=== PATIENT | male | born 1955 | race Caucasian/White ===

== ENCOUNTER → 2024-05-19 08:20 | Outpatient (REF) | payer BC, SELFPAY | LOC: RCS 08:20 | PROVIDERS: ATTENDING PHYSICIAN Internal Medicine Cardiovascular Disease; FAMILY PHYSICIAN Family Medicine | DX: E78.2 Mixed hyperlipidemia (principal); R68.84 Jaw pain; E11.9 Type 2 diabetes mellitus without complications; Z79.4 Long term (current) use of insulin; Z82.49 Family history of ischemic heart disease and other diseases of the circulatory system | CPT/HCPCS: 93017; 93350 ==

== ENCOUNTER → 2024-11-17 18:26 | Outpatient (REF) | payer BC, SELFPAY | LOC: MRI 3T 18:26 | PROVIDERS: ATTENDING PHYSICIAN Surgery; FAMILY PHYSICIAN Family Medicine | DX: R97.20 Elevated prostate specific antigen [PSA] (principal) | CPT/HCPCS: 72197; A9575 ==

== ENCOUNTER 2025-08-14 09:05 | Emergency (ER) | payer BC, SELFPAY ==
[2025-08-14 09:08] VITALS: BP 141/76
[2025-08-14 09:37] LABS: Hematocrit 45.7 % (39.0-52.0); Hemoglobin 15.2 g/dL (13.0-18.0); Mean Corp Hgb Conc. 33.3 g/dL (33.0-37.0); Mean Corpuscular Volume 94.2 fL (80.0-94.0); Nucleated Red Blood Cells % 0 % (-); Platelet Count 255 10^3/uL (130-400); Red Cell Dist. Width 12.5 % (11.5-14.5)
[2025-08-14 09:48] LABS: Urine Character Clear (Clear)
[2025-08-14 09:48] LABS: ALT (SGPT) 21 U/L (0-50); AST (SGOT) 19 U/L (17-59); Albumin 4.6 g/dl (3.5-5.0); Alkaline Phosphatase 105 U/L (38-126); Blood Urea Nitrogen 23 mg/dl (9-20); Calcium 9.3 mg/dl (8.4-10.2); Carbon Dioxide 26 mmol/L (22-30); Chloride 103 mmol/L (98-107); Glucose 168 mg/dl (70-99); Potassium 4.3 mmol/L (3.5-5.1); Sodium 138 mmol/L (135-145); Total Protein 7.8 g/dl (6.3-8.2); eGFR > 60.00
--- NOTE | 2025-08-14 10:06 | ED.GENMED ---
History of Present Illness
General
Chief Complaint: Flank Pain
Source: patient and spouse
Time Seen by Provider: 08/14/25 09:37
History of Present Illness
History of Present Illness:
70-year-old male presents emergency department with complaints of a 'dull constant' discomfort rated 3 out of 10 noted in the right back area about 6 days ago. This was also associated with dysuria and frequency. He denies hematuria, fever,
chills, sweats, abdominal pain, testicular/groin pain, chest pain, shortness of breath, nausea, vomiting. He spoke to his urology office yesterday and was sent for an outpatient UA which he submitted, Augmentin. He has taken 3 doses this
medication and notes that the dysuria has decreased 'significantly'. His pain is now 1 out of 10 and currently here in the bed he is pain-free. He notes the pain is worse when he stands or walks around. The pain is nonradiating, and he denies
numbness, tingling, weakness, incontinence, saddle anesthesia, or other complaints. He was concerned today that he may have an associated kidney stone.
Past History
Past History
ED Past Medical History: IDDM and Other (chronic bronchitis, kidney stone)
ED Past Surgical History: Other (Melanoma removal)
Social History
Tobacco: Non-smoker
Alcohol: Occasional
Drug: None
Personal:
Living: with family
Phy Exam
Physical Exam
Physical Exam:
GENERAL: Alert , in no apparent distress
EYE: pupils equal and reactive
NECK: Supple, no significant adenopathy.
ENT: o/p clr, mmm.
CARDIAC: Regular rate and rhythm .
LUNGS: Clear breath sounds bilaterally, no acute respiratory distress, no wheezes/rales/rhonchi
ABDOMEN: Soft, without focal tenderness, no r/g, no cvat
NEUROLOGICAL: Alert and oriented, no focal neuro deficits
SKIN: Warm and dry, skin intact.
MUSCULOSKELETAL: No edema, well perfused.
PSYCH: Normal and appropriate interaction.
Course
Orders/Labs/Results
Orders:
Orders
08/14/25 09:22
Complete Blood Count/With Diff Urgent
Comprehensive Metabolic Panel Urgent
08/14/25 09:41
Urinalysis Reflex To Culture Urgent
Date Specimen was Collected: 08/14/25
Time Specimen was Collected: :26
Urine Microscopic Reflex Cult Urgent
Urine Culture Urgent
VICKY Source: U
Specimen Description:
Date Specimen was Collected: 08/14/25
Time Specimen was Collected: :
08/14/25 10:06
CT Abd/pel Without Iv Or Oral Urgent
Comment:
Reason For Exam: hx k stone, now R flnk pain
Abnormal Lab Results
08/14/25 08/14/25
09:22 09:41
MCV 94.2 H fL
(80.0-94.0)
MCH 31.3 H pg
(27.0-31.0)
MPV 10.6 H fL
(7.4-10.4)
Abs Immat Gran (auto) 0.1 H 10^3/uL
(0-0.05)
Absolute Monos (auto) 0.7 H 10^3/uL
(0.1-0.6)
Immature Gran % 0.8 H %
(0-0.5)
Lymphocytes % 20.3 L %
(20.5-51.1)
BUN 23 H mg/dl
(9-20)
Glucose 168 H mg/dl
(70-99)
Ur Occult Blood Reflex 1+ A
(Negative)
Leukocyte Esterase Rfl 2+ A
(Negative)
Urine RBC 11-15 A /HPF
(0-2)
Urine WBC (Reflex) 40-50 A /HPF
(0-5)
Urine Bacteria (Reflex) Few A
(Negative)
Urine Glucose 4+ A
(Negative)
Urine Albumin (Reflex) 1+ A
(Neg - Trace)
08/14/25 09:22
08/14/25 09:22
Vital Signs
Initial and Last Documented VS:
Initial Vital Signs
Temp Pulse Resp BP Pulse Ox
97.8 F 73 18 141/76 98
08/14/25 09:08 08/14/25 09:08 08/14/25 09:08 08/14/25 09:08 08/14/25 09:08
Last Documented Vital Signs
Temp Pulse Resp BP Pulse Ox
97.8 F 77 16 123/74 98
08/14/25 09:08 08/14/25 11:03 08/14/25 11:03 08/14/25 11:03 08/14/25 11:03
*Pulse Oximetry
SaO2: 98
Oxygen Mode of Delivery: Room air
Patient hypoxic: no
*Critical Care Note
Total Time (30-74mins, 75-104mins- exclusive of procedures): Not Applicable
Update Note
Update Note:
Patient presents to the Emergency Department with right flank pain with dysuria and__frequency___
Number and Complexity of Problems Addressed at the Encounter
� Chronic conditions affecting care:
� Acute Exacerbation and/or Progression of Chronic Illness:
� Differential Diagnosis includes: But not limited to kidney stone, pyelonephritis, cystitis, musculoskeletal pain, etc. etc.
Amount and/or Complexity of Data to be Reviewed and Analyzed
� I performed an independent evaluation of and my interpretation is:
EKG:
CT: No significant acute abnormality identified in the abdomen or pelvis, within the limits of unenhanced CT, as described above. No urinary calculi or hydronephrosis. Normal appendix.
Xrays:
Laboratory Studies: Generally unremarkable bloodwork, ua suggestive of UTI
Other:
� Review of other/old records reveals:
� Clinical information was obtained by an independent historian: who is at bedside and describes patient's symptoms as similar to when he had a kidney stone in the past
� Prescriptions/Medications Considered but not given:
� Further testing considered but not performed:
Risk of Complications and/or Morbidity or Mortality of Patient Management
� Social determinants of health affecting care:
� Discussion with other providers (PCP, Hospitalists, Consultants, etc):
� Escalation of care including admission/observation vs risk of discharge considered: No kidney stone noted on CT, patient well-appearing, not septic, suspect symptoms related to UTI, recommend continue antibiotics, await
sensitivities from urine that he submitted to [facility] on Saturday, close follow-up with his doctor.
ED Attending Note
-
Portions of this chart may have been created with voice recognition software.� Occasional wrong word or��sound alike� substitutions may have occurred due to the inherent limitations of voice recognition software.
Discharge Plan
Departure
Patient Disposition: Home (Routine Discharge)
Date of Disposition: 08/14/25
Time of Disposition: 11:15
Patient with high blood pressure during this ER visit?: Yes
Condition: Good
Discharge Problem:
Acute UTI
Instructions: Urinary tract infection in adults - ED (DC), BLOOD PRESSURE
Prescriptions:
No Action
atorvastatin 10 MG tablet
10 mg PO QPM
canagliflozin [Invokana] 300 MG tablet
300 mg PO DAILY
insulin degludec [Tresiba FlexTouch U-200] 200 UNIT/ML insulin pen
50 unit SQ HS
semaglutide [Ozempic] 1 MG/0.75 ML pen injector
1 mg SQ TH
famotidine 20 MG tablet
20 mg PO BID 7 Days Qty: 14 0RF
Rx Instructions:
while on high steroid doses
benzonatate 100 MG capsule
100 mg PO TIDPRN PRN (Reason: cough) 7 Days Qty: 21 0RF
dexamethasone 2 MG tablet
6 mg PO DAILY 8 Days Qty: 24 0RF
Rx Instructions:
next dose 1/6 AM
guaifenesin [Mucus Relief ER] 600 MG tablet extended release 12hr
600 mg PO Q12 0RF
Referrals:
Fernando Elias DO [Family Provider, Family Practice] - Follow up in 2-3 days
Activity Restrictions/Additional Instructions:
PLEASE FOLLOW-UP WITH YOUR DOCTOR THIS WEEK REGARDING YOUR SYMPTOMS, URINE CULTURE RESULTS, AND BLOOD PRESSURE ELEVATION. IF YOU DEVELOP INCREASING NEW OR PERSISTENT PAIN, VOMITING, FEVER, PAIN WITH URINATION, DIFFICULTY URINATING, GET WORSE, DO
NOT GET BETTER, OR OTHER WORRISOME SIGNS, PLEASE RETURN TO THE ER IMMEDIATELY! PLEASE CONTINUE TO TAKE YOUR ANTIBIOTIC DIRECTED!
Interventions
Interventions:
*Risk Screen - Suicide Last Done: 08/14/25 09:08
*General Assessment Last Done: 08/14/25 09:08
*Neglect/Abuse Screening Last Done: 08/14/25 09:08
*ED- Fall Risk Assessment Last Done: 08/14/25 09:24
*ED COVID-19 Vaccine History Last Done: 08/14/25 09:24
*ED Influenza Vaccine History Last Done: 08/14/25 09:24
*Nursing Disposition Last Done: 08/14/25 11:22
[facility] Assessment Last Done: 08/14/25 09:24
ED-Male Genitourinary Assessment Last Done: 08/14/25 09:24
Discharge Date and Time
Discharge Date/Time: 08/14/25 11:37
Print Language: ANGUILLAN
[2025-08-14 10:45] LABS: Urine Squamous Cell 0-2 /LPF (Few); Urine Urothelial Cell 0-2 /LPF (FEW)
[2025-08-14 10:46] LABS: Urine White Cell 40-50 /HPF (0-5)
[2025-08-14 11:03] VITALS: BP 123/74
== END 2025-08-14 11:37 | disposition home or self-care (01) ==
LOC: EMR 09:05
PROVIDERS: Emergency Medicine; EMERGENCY PHYSICIAN Emergency Medicine; FAMILY PHYSICIAN Family Medicine
DX: N39.0 Urinary tract infection, site not specified (principal); R03.0 Elevated blood-pressure reading, without diagnosis of hypertension; E11.9 Type 2 diabetes mellitus without complications; J42 Unspecified chronic bronchitis; Z79.4 Long term (current) use of insulin; Z79.84 Long term (current) use of oral hypoglycemic drugs; Z87.442 Personal history of urinary calculi; Z85.820 Personal history of malignant melanoma of skin
CPT/HCPCS: 99284; 74176; 80053; 81003; 81015; 85025; 87086